=== PATIENT | male | born 1950 | race Caucasian/White ===

== ENCOUNTER → 2019-03-20 | Outpatient (CLI) | payer OTHER, BC ==
[~2019-03-20] VITALS: Ht 177.8 cm; Wt 90.7 kg
[~2019-03-20] MED LIST: CENTRUM SILVER1 EAC7 PO; FISH OIL 1,0001 EAC9 PO; FLONASE 0.05%50 MCG NARES; HYDROCHLOROTHIA25 M2 PO; LORATIDINE 10 M10 M1 PO; METAFOLBIC TAB1 EACH PO; OSELB75 PO; QUINAPRIL HCL40 MG PO; TESSALON PERLE100 MG PO; VITAMIN C1000 MG PO; ZOFRAN ODT4 MG PO
--- NOTE | 2019-03-21 17:40 | P ---
[facility] [place] [address] PROCEDURE REPORT Name: GASPER HERBERT Room #: REG [facility].#: [id number] Admission: 03/20/19 Attend Phys: Dickson Gaona MD Discharge: Date of : 48 Report #: [id number] THIS REPORT FOR: //name// CC: Dickson Fraga OUTPATIENT COLONOSCOPY REPORT BRIEF HISTORY: The patient is a 68-year-old male with a history of colon polyps for high risk screening colonoscopy. PREOPERATIVE DIAGNOSIS: High risk screening colonoscopy. POSTOPERATIVE DIAGNOSES: 1. Mild sigmoid diverticulosis coli. 2. Internal hemorrhoids with large anal tags. MEDICATIONS: Deep sedation with propofol per anesthesia. SPECIMEN: None. ESTIMATED BLOOD LOSS: None. PROCEDURE: Colonoscopy to cecum and terminal ileum. FINDINGS: Prior to propofol sedation, procedure of colonoscopy discussed with the patient as well as potential risks and its complications. He indicates he understands and desires to proceed. DESCRIPTION OF PROCEDURE: With the patient in left lateral decubitus position, digital examination was completed which revealed no abnormalities other than anal tags which were previously noted. Subsequently, the Olympus video colonoscope was introduced in the rectum, advanced under direct vision to the cecum, done with minimal difficulty. The cecum was identified by the ileocecal valve and the appendiceal orifice. I was able to visualize the distal segment of terminal ileum, which was inspected and noted to be unremarkable. At that point, the scope was slowly withdrawn and careful circumferential views were obtained. Upon slow withdrawal of the scope, the prep was excellent. Mucosa was within normal limits, normal vascular pattern, normal light reflex. As we withdrew the scope, no neoplastic lesions were seen. No polyps were identified during this examination. As we withdrew the scope to the sigmoid colon, few very small sigmoid diverticula were seen. There was no endoscopic evidence of diverticulitis. The scope was withdrawn in the rectum. Upon retroflexion, no abnormalities were seen. Upon retroflexion, however, there were noted to be small hemorrhoids and 2 very prominent anal tags. It is noted that these had been previously identified and previously biopsied. In 2016, biopsies revealed [facility] [address] [place] [address] PROCEDURE REPORT Name: GASPER HERBERT Room #: REG [facility].#: [id number] Admission: 03/20/19 Attend Phys: Dickson Gaona MD Discharge: Date of : 48 Report #: [id number] hyperkeratotic and irritated squamous mucosa with reactive changes. These appeared to be stable and were not biopsied. Scope was withdrawn. The patient tolerated the procedure well. CONDITION OF THE PATIENT UPON DISCHARGE: Following procedure, the patient drowsy, aroused, conversant and will be discharged home when fully ambulatory. INSTRUCTIONS TO THE PATIENT AND FAMILY AT THE TIME OF DISCHARGE: No neoplastic lesions identified today. He had diminutive polyps in the past. At this point, I would suggest he will return in 10 years for screening colonoscopy. Last colonoscopy was in 2016. Withdrawal time from the cecum was 15 minutes 57 seconds. <ELECTRONICALLY SIGNED> By: Dickson Gaona MD 03/21/19 1740 [id number] Dickson Gaona MD /nt
== END | disposition home or self-care (01) ==
LOC: GI 03-13 18:51
DX: Z12.11 Encounter for screening for malignant neoplasm of colon (principal); Z86.010 Personal history of colon polyps; K57.30 Diverticulosis of large intestine without perforation or abscess without bleeding; K64.8 Other hemorrhoids; K64.4 Residual hemorrhoidal skin tags; I10 Essential (primary) hypertension; K21.9 Gastro-esophageal reflux disease without esophagitis; Z85.828 Personal history of other malignant neoplasm of skin; Z85.46 Personal history of malignant neoplasm of prostate; Z98.890 Other specified postprocedural states; Z79.899 Other long term (current) drug therapy
CPT/HCPCS: 62110; 62900